=== PATIENT | male | born 1960 | race Caucasian/White ===

== ENCOUNTER 2020-10-16 08:09 | Emergency (ER) | payer OTHER ==
--- NOTE | 2020-10-16 09:03 | ERPHSYRPT ---
- History of Present Illness Source: patient Exam Limitations: no limitations Patient Subjective Stated Complaint: R knee pain Triage Nursing Assessment: pt to ED c/o R knee pain since hurting back Friday at work. rates 8/10 pain. ambulatory with walker since injury, but reports back does not hurt any longer. "the more I stand on it the longer it hurts." Physician History: 60 yo WM w non-traumatic R knee pain starting on 10/13/20. Pt states that his lower back started to hurt on 10/13/20 but has since resolved. His R knee started to hurt after his lumbar pain resolved. He does not have any radicular pain/calf,thigh, or hip pain/edema. Pain is 6/10, worse w standing, and described as "burning". Pt has a h/o gout in his R great toe in the past. Method of Injury: unknown Occurred: other (10/13/20) Quality: constant, burning Severity of Pain-Max: severe Severity of Pain-Current: moderate Lower Extremities Pain: knee: right Modifying Factors: Improves With: movement Associated Symptoms: other (Pain worse w weight bearing) Allergies/Adverse Reactions: No Known Drug Allergies Allergy (Unverified 10/16/20 08:46) Hx Tetanus, Diphtheria Vaccination/Date Given: No Hx Influenza Vaccination/Date Given: No Hx Pneumococcal Vaccination/Date Given: No Immunizations Up to Date: No Travel Risk - International Travel Have you traveled outside of the country in past 3 weeks: No - Coronavirus Screening Are you exhibiting any of the following symptoms?: No Close contact with a COVID-19 positive Pt in past 14-21 Days: No - Vaccine Status Have you recieved a Covid-19 vaccination: No - Review of Systems Constitutional: No Symptoms Eyes: No Symptoms Ears, Nose, & Throat: No Symptoms Respiratory: No Symptoms Cardiac: No Symptoms Abdominal/Gastrointestinal: No Symptoms Genitourinary Symptoms: No Symptoms Skin: No Symptoms Neurological: No Symptoms Psychological: No Symptoms Endocrine: No Symptoms Hematologic/Lymphatic: No Symptoms Immunological/Allergic: No Symptoms - Past Medical History Pertinent Past Medical History: Yes Other Medical History: gout - Past Surgical History Past Surgical History: Yes Musculoskeletal: Orthopedic Surgery Other Surgical History: L thumb - Social History Smoking Status: Never smoker Exposure to second hand smoke: No Drug Use: none Patient Lives Alone: No Significant Family History: no pertinent family hx - Nursing Vital Signs Nursing Vital Signs: Initial Vital Signs Temperature 97.4 F 10/16/20 08:39 Pulse Rate 62 10/16/20 08:39 Respiratory Rate 18 10/16/20 08:39 Blood Pressure 169/87 10/16/20 08:39 O2 Sat by Pulse Oximetry 98 10/16/20 08:39 Pain Scale Pain Intensity 4 Hypertensive - Physical Exam General Appearance: no apparent distress Eyes, Ears, Nose, Throat Exam: normal ENT inspection, TMs normal, pharynx normal, moist mucous membranes Neck Exam: normal inspection, non-tender, supple, full range of motion, No Brudzinski, No Kernig's, No meningismus, No carotid bruit Cardiovascular/Respiratory Exam: chest non-tender, normal breath sounds, regular rate/rhythm, heart sounds normal, rhonchi Gastrointestinal/Abdominal Exam: soft, no organomegaly Back Exam: normal inspection, normal range of motion, No CVA tenderness, No vertebral tenderness Hips Exam: bilateral: non-tender, normal inspection, normal range of motion, no evidence of injury Legs Exam: bilateral leg: non-tender, normal inspection, normal range of motion, no evidence of injury Knees Exam: right knee: bone tenderness (Mild diffuse R knee TTP/No instability/Good pedal pulse, distal sensation, and capillary return) Neuro/Tendon Exam: normal sensation, normal motor functions, normal tendon functions, responds to pain, no evidence tendon injury Mental Status Exam: alert, oriented x 3, cooperative Skin Exam: normal color, warm, dry, No rash SpO2 Interpretation: normal SpO2: 98 O2 Delivery: Room Air - Radiology Exams Knee X-ray Interpretation: Discussed w/ radiologist (R knee neg for acute pathology/Fabella) Ordered Tests: Active Orders 24 hr Category Date Time Status Dennis Bandage Application [facility] STAT Care 10/16/20 10:03 Completed KNEE (3 VIEWS) Stat Exams 10/16/20 09:22 Completed ESR [Erythrocyte Sedimentation Rate] Stat Lab 10/16/20 09:03 Completed Uric Acid Stat Lab 10/16/20 09:03 Completed Medication Summary Discontinued Medications Generic Name Dose Route Start Last Admin Trade Name Freq PRN Reason Stop Dose Admin Ketorolac Tromethamine 30 mg 10/16/20 10:00 10/16/20 10:12 Toradol 30 Mg Injection IM 10/16/20 10:01 30 mg STAT ONE Administration Ketorolac Tromethamine Confirm 10/16/20 10:11 Toradol 30 Mg Injection Administered 10/16/20 10:12 Dose 30 mg .ROUTE .STK-MED ONE Methylprednisolone Sodium Succinate 125 mg 10/16/20 10:03 10/16/20 10:13 Solu-Medrol W/Diluent 500 Mg IM 10/16/20 10:04 125 mg STAT ONE Administration Methylprednisolone Sodium Succinate Confirm 10/16/20 10:11 Solu-Medrol Administered 10/16/20 10:12 Dose 125 mg .ROUTE .STK-MED ONE Sterile Water Confirm 10/16/20 10:11 Sterile H2o 10 Ml Administered 10/16/20 10:12 Dose 10 ml IJ .STK-MED ONE Lab/Rad Data: Laboratory Results 10/16/20 10/16/20 Range/Units 09:03 09:03 ESR 9 (0-15) mm/hr Uric Acid 4.7 (3.5-7.2) mg/dL - Progress Progress: improved Progress Note: 10/16/20 10:05 30mg IM Toradol/125mg IM Solumedrol Dennis wrap R knee per nursing/NVI Counseled pt/family regarding: lab results, need for follow-up, rad results - Departure Departure Disposition: Home Clinical Impression: Knee pain Condition: Stable Critical Care Time: No Referrals: CARRINGTON KELLER, DO [Primary Care Provider] - Instructions: Knee Pain (DC) Additional Instructions: Dennis wrap for 2-3 days Weight bearing as tolerated Toradol as needed for pain Follow up with your family MD for continued pain Prescriptions: Ketorolac Tromethamine [Toradol] 10 mg PO TID PRN #10 tablet PRN Reason: Pain
--- NOTE | 2020-10-16 09:49 | XRAY ---
Indication: Pain following fall. Comparison: None 3 view right knee demonstrates small posterior fabella. No other bony, articular, or soft tissue abnormalities.
[2020-10-16] MEDS ORDERED: TORAdol 30 mg Injection IM ONE (10:00)
[2020-10-16] MEDS ORDERED: solu-MEDROL W/DILUENT 500 MG IM ONE (10:03)
[2020-10-16] MEDS ORDERED: TORAdol 30 mg Injection ONE (10:11)
[2020-10-16] MEDS ORDERED: solu-MEDROL ONE (10:11)
[2020-10-16] MEDS ORDERED: Sterile H2O 10 ml IJ ONE (10:11)
[2020-10-16 11:01] VITALS: BP 142/81; PULSE 58
[2020-10-16 20:03] VITALS: O2SAT 98
== END 2020-10-16 11:02 | disposition home or self-care (01) ==
LOC: ED 08:09
DX: M25.561 Pain in right knee (principal)
CPT/HCPCS: 36415; 73562; 84550; 85652; 96372; 99284; J1885; J2930

== ENCOUNTER 2023-10-20 14:12 | Emergency (ER) | payer OTHER ==
[2023-10-20 14:24] VITALS: TEMP 97.1; O2SAT 98
[2023-10-20 14:42] LABS: Absolute Neutrophil Ct (ANC) 5.57 x10^3/uL (1.78-5.38); BASOPHIL % 0.5 % (0.2-1.2); Basophil (Absolute #) 0.04 x10^3/uL (0.01-0.08); Eosinophil % 0.8 % (0.8-7.0); Eosinophil (Absolute #) 0.06 x10^3/uL (0.04-0.54); Hematocrit 43.2 % (40.1-51.0); Hemoglobin 14.4 g/dL (13.7-17.5); IMMATURE GRAN # 0.02 x10^3u/L (0.001-0.031); IMMATURE GRAN % 0.3 % (0.001-0.429); Lymphocyte (Absolute #) 1.57 x10^3/uL (1.32-3.57); Lymphocytes % 20.2 % (21.8-53.1); Mean Cell Volume 91.7 fL (79.0-92.2); Mean Corpuscular Hemoglobin 30.6 pg (25.7-32.2); Mean Corpuscular Hgb Concent. 33.3 g/dL (32.3-36.5); Mean Platelet Volume 10.2 fL (9.4-12.4); Monocyte (Absolute #) 0.52 x10^3/uL (0.30-0.82); Monocytes % 6.7 % (5.3-12.2); Neutrophil % 71.5 % (34.0-67.9); Platelet Count 181 x10^3/uL (163-337); Red Blood Count 4.71 x10^6/uL (4.63-6.08); Red Cell Distribution Width 12.3 % (11.6-14.4); White Blood Count 7.8 x10^3/uL (4.23-9.07)
[2023-10-20] MEDS: Transderm Scop 1.5MG Patch TOP ONE (14:56)
[2023-10-20 15:00] LABS: ALBUMIN 4.4 g/dL (3.5-5.0); ANION GAP 16.7 MEQ/L (5-15); Calcium 9.5 mg/dL (8.4-10.2); Creatinine 1 1.11 mg/dL (0.66-1.25); EST GLOMERULAR FILTRATION RATE 74.2 ML/MIN; MAGNESIUM 2.3 mg/dL (1.6-2.3); Potassium 3.8 mmol/L (3.5-5.1); Total Protein 7.1 g/dL (6.3-8.2)
--- NOTE | 2023-10-20 15:56 | ERPHSYRPT ---
- History of Present Illness Time Seen by Provider: 10/20/23 14:18 Source: patient Exam Limitations: no limitations Patient Subjective Stated Complaint: syncopal episode at home at approximately 1310 Triage Nursing Assessment: Pt arrives to ER via ambulance with cc of syncopal episode x1 prior to arrival. States hiked 4 miles today. Approximately 1 hour after the hike, bent over, came back upright and got lightheaded. Sat down, had syncopal episode. called EMS. per EMS, initial BP on scene 60's/30's. Enroute, improved to 90's/50's. Upon arrival to ER, BP stable. Pt A &OX3, denies LAWTON, nausea, dizziness. Skin PWD. FSBS and vitals all WNL. Pt states he feels his normal self. EKG shows NSR. Pt is A &OX3, answers all questions appropriately. Physician History: 63-year-old fairly healthy male presented in the ER with complains of syncopal episode prior to arrival. Patient reportS almost 4 miles hiking earlier today, was sitting outside, got up, felt dizzy and lightheaded which improved with sitting again and later on he bent down with worsening of lightheadedness on standing and passed out for few seconds. It was witnessed, did not hit his head. No seizure-like activity noticed. He was not postictal. Although patient was feeling weak fatigued tired all over. Initial blood pressure on EMS arrival was in 60s which improved quickly to 90s and on presentation in the ER is 144 systolic. Denies any chest pain palpitations or shortness of breath before or after this episode. Patient denies any focal numbness tingling weakness, difficulty speech or visual disturbance. Denies any headache. Ashly ent is currently asymptomatic. Patient thinks he got hot because he was in front of the fire for a little while before this happened. Allergies/Adverse Reactions: No Known Drug Allergies Allergy (Unverified 10/16/20 08:46) Hx Tetanus, Diphtheria Vaccination/Date Given: No Hx Influenza Vaccination/Date Given: No Hx Pneumococcal Vaccination/Date Given: No Travel Risk - International Travel Have you traveled outside of the country in past 3 weeks: No - Review of Systems Constitutional: Fatigue Eyes: No Symptoms Ears, Nose, & Throat: No Symptoms Respiratory: No Symptoms Cardiac: No Symptoms Abdominal/Gastrointestinal: No Symptoms Genitourinary Symptoms: No Symptoms Musculoskeletal: No Symptoms Skin: No Symptoms Neurological: No Symptoms Endocrine: No Symptoms Hematologic/Lymphatic: No Symptoms Immunological/Allergic: No Symptoms - Past Medical History Pertinent Past Medical History: Yes Other Medical History: gout - Past Surgical History Past Surgical History: Yes Musculoskeletal: Orthopedic Surgery Other Surgical History: L thumb Significant Family History: no pertinent family hx - Social History Smoking Status: Never smoker Exposure to second hand smoke: No Drug Use: none Patient Lives Alone: No - Nursing Vital Signs Nursing Vital Signs: Initial Vital Signs Temperature 97.1 F 10/20/23 14:13 Pulse Rate 62 10/20/23 14:13 Respiratory Rate 16 10/20/23 14:13 Blood Pressure 113/66 10/20/23 14:13 O2 Sat by Pulse Oximetry 98 10/20/23 14:13 Pain Scale Pain Intensity 0 - Physical Exam General Appearance: no apparent distress, alert Eye Exam: PERRL/EOMI Ears, Nose, Throat Exam: normal ENT inspection Neck Exam: normal inspection, non-tender, supple, full range of motion Respiratory Exam: normal breath sounds, lungs clear Cardiovascular Exam: regular rate/rhythm, normal heart sounds Gastrointestinal/Abdomen Exam: soft, normal bowel sounds, No tenderness Back Exam: normal inspection, normal range of motion Extremity Exam: normal inspection, normal range of motion Neurologic Exam: alert, oriented x 3, cooperative, job coach/job developer II-XII nml as tested, normal mood/affect, nml cerebellar function, nml station & gait, sensation nml, motor deficits Skin Exam: normal color SpO2 Interpretation: normal SpO2: 98 O2 Delivery: Room Air - Course EKG Interpreted by Me: RATE (62), Sinus Rhythm, NORMAL AXIS, NORMAL INTERVALS, NORMAL QRS Ordered Tests: Active Orders 24 hr Category Date Time Status Underwear Finisher STAT Care 10/20/23 14:25 Active EKG-ER Only STAT Care 10/20/23 14:24 Active IV Insertion STAT Care 10/20/23 14:24 Active Orthostatic Vital Signs STAT Care 10/20/23 14:24 Active CHEST 1 VIEW (PORTABLE) Stat Exams 10/20/23 14:24 Taken CBC W DIFF Stat Lab 10/20/23 14:38 Completed CK-Creatinine Phosphokinase Stat Lab 10/20/23 14:38 Completed CMP Stat Lab 10/20/23 14:38 Completed Lactic Acid Stat Lab 10/20/23 14:51 Completed MAGNESIUM Stat Lab 10/20/23 14:38 Completed POCT GLUCOSE Stat Lab 10/20/23 14:19 Completed TROPONIN Q4H Lab 10/20/23 14:38 Completed TROPONIN Q4H Lab 10/20/23 18:30 Ordered TROPONIN Q4H Lab 10/20/23 22:30 Ordered UA W/RFX UR CULTURE Stat Lab 10/20/23 15:49 Ordered Medication Summary Discontinued Medications Generic Name Dose Route Start Last Admin Trade Name Freq PRN Reason Stop Dose Admin Sodium Chloride 1,000 mls @ 999 mls/hr 10/20/23 14:24 Sodium Chloride 0.9% 1000 Ml IV 10/20/23 15:24 .Q1H1M STA Scopolamine HBr 1.5 mg 10/20/23 14:24 10/20/23 14:56 Scopolamine 1.5 Mg Patch TOP 10/20/23 14:25 Not Given STAT ONE Lab/Rad Data: Laboratory Result Diagrams 10/20/23 14:38 10/20/23 14:38 Laboratory Results 10/20/23 10/20/23 10/20/23 Range/Units 14:51 14:38 14:38 WBC (4.23-9.07) x10^3/uL RBC (4.63-6.08) x10^6/uL Hgb (13.7-17.5) g/dL Hct (40.1-51.0) % MCV (79.0-92.2) fL MCH (25.7-32.2) pg MCHC (32.3-36.5) g/dL RDW (11.6-14.4) % Plt Count (163-337) x10^3/uL MPV (9.4-12.4) fL Gran % (34.0-67.9) % Immature Gran % (Auto) (0.001-0.429) % Nucleat RBC Rel Count (0.00-0.2) % Eos # (Auto) (0.04-0.54) x10^3/uL Immature Gran # (Auto) (0.001-0.031) x10^3u/L Absolute Lymphs (auto) (1.32-3.57) x10^3/uL Absolute Monos (auto) (0.30-0.82) x10^3/uL Absolute Nucleated RBC (0.00-0.012) x10^3u/L Lymphocytes % (21.8-53.1) % Monocytes % (5.3-12.2) % Eosinophils % (0.8-7.0) % Basophils % (0.2-1.2) % Absolute Granulocytes (1.78-5.38) x10^3/uL Basophils # (0.01-0.08) x10^3/uL Sodium 137 (135-145) mmol/L Potassium 3.8 (3.5-5.1) mmol/L Chloride 100 (98-107) mmol/L Carbon Dioxide 24 (22-30) mmol/L Anion Gap 16.7 H (5-15) MEQ/L BUN 16 (9-20) mg/dL Creatinine 1.11 (0.66-1.25) mg/dL Estimated GFR 74.2 ML/MIN Glucose 109 H (74-106) mg/dL POC Glucometer (74 to 106) mg/dL Lactic Acid 1.9 (0.4-2.0) Calcium 9.5 (8.4-10.2) mg/dL Magnesium 2.3 (1.6-2.3) mg/dL Total Bilirubin 1.00 (0.2-1.3) mg/dL AST 26 (17-59) U/L ALT 21 (0-50) U/L Alkaline Phosphatase 79 (38-126) U/L Creatine Kinase 69 (55-170) U/L Troponin I < 0.012 (0.000-0.033) ng/mL Serum Total Protein 7.1 (6.3-8.2) g/dL Albumin 4.4 (3.5-5.0) g/dL 10/20/23 10/20/23 Range/Units 14:38 14:19 WBC 7.8 (4.23-9.07) x10^3/uL RBC 4.71 (4.63-6.08) x10^6/uL Hgb 14.4 (13.7-17.5) g/dL Hct 43.2 (40.1-51.0) % MCV 91.7 (79.0-92.2) fL MCH 30.6 (25.7-32.2) pg MCHC 33.3 (32.3-36.5) g/dL RDW 12.3 (11.6-14.4) % Plt Count 181 (163-337) x10^3/uL MPV 10.2 (9.4-12.4) fL Gran % 71.5 H (34.0-67.9) % Immature Gran % (Auto) 0.3 (0.001-0.429) % Nucleat RBC Rel Count 0.0 (0.00-0.2) % Eos # (Auto) 0.06 (0.04-0.54) x10^3/uL Immature Gran # (Auto) 0.02 (0.001-0.031) x10^3u/L Absolute Lymphs (auto) 1.57 (1.32-3.57) x10^3/uL Absolute Monos (auto) 0.52 (0.30-0.82) x10^3/uL Absolute Nucleated RBC 0.00 (0.00-0.012) x10^3u/L Lymphocytes % 20.2 L (21.8-53.1) % Monocytes % 6.7 (5.3-12.2) % Eosinophils % 0.8 (0.8-7.0) % Basophils % 0.5 (0.2-1.2) % Absolute Granulocytes 5.57 H (1.78-5.38) x10^3/uL Basophils # 0.04 (0.01-0.08) x10^3/uL Sodium (135-145) mmol/L Potassium (3.5-5.1) mmol/L Chloride (98-107) mmol/L Carbon Dioxide (22-30) mmol/L Anion Gap (5-15) MEQ/L BUN (9-20) mg/dL Creatinine (0.66-1.25) mg/dL Estimated GFR ML/MIN Glucose (74-106) mg/dL POC Glucometer 90 (74 to 106) mg/dL Lactic Acid (0.4-2.0) Calcium (8.4-10.2) mg/dL Magnesium (1.6-2.3) mg/dL Total Bilirubin (0.2-1.3) mg/dL AST (17-59) U/L ALT (0-50) U/L Alkaline Phosphatase (38-126) U/L Creatine Kinase (55-170) U/L Troponin I (0.000-0.033) ng/mL Serum Total Protein (6.3-8.2) g/dL Albumin (3.5-5.0) g/dL - Progress Progress: improved Progress Note: 10/20/23 15:54 61 years old is evaluated in the ER for syncopal episode prior to arrival. Patient was hiking earlier and prior to this episode he was in front of the fire when he got dizzy lightheaded with standing. Patient had no seizure-like activity. Nonfocal neuroexam on presentation. Patient was hypotensive, blood pressure in 60s on EMS arrival but improved to 140s on presentation in the ER. EKG is sinus rhythm with no acute ischemic changes. Negative troponins. Normal white count, fairly unremarkable chemistries except for mildly elevated gap which probably is secondary to some dehydration. Chest x-ray negative for any acute cardiopulmonary findings reviewed by me, official report is pending. Patient has negative orthostatics. Recommended IV fluids which she declined. Patient does not want to have anything else done including CT head. I believe patient's symptoms are more of a vasovagal/orthostatic syncope, it was not vertiginous, recommended increase hydration and outpatient follow-up. Discussed signs symptoms of worsening needing return to ER which she seems understanding. Stable for discharge. Counseled pt/family regarding: lab results, diagnosis, need for follow-up, rad results Medical Desision Making - Independent Historian Additional History obtained from: Spouse, Weighmaster/EMT - Diagnostic Testing Diagnostic test were ordered, analyzed, and reviewed by me: Yes Radiological Interpretation: Interpreted by me, Reviewed by me - Departure Departure Disposition: Home Clinical Impression: Syncope and collapse Condition: Stable Critical Care Time: No Referrals: Jackie KELLER [Primary Care Provider] - Follow up with PCP 1 day MELISSA WALKER [CONSULTING PHYSICIAN] - Follow up/PCP as directed (Call for appointment) Instructions: Syncope (Fainting) (DC) Additional Instructions: Drink plenty of fluids to keep yourself well-hydrated. Follow-up with primary care/cardiology for reevaluation. Return to ER if having dizziness lightheadedness, chest pain palpitations or shortness of breath etc.
[2023-10-20 16:13] VITALS: BP 122/65; PULSE 64; RESP 10
[2023-10-20 16:26] LABS: Appearance Clear (Clear); Bacteria None Seen /HPF (None Seen); Bilirubin Negative (Negative); Blood Negative (Negative); Epithelial Cells None Seen /HPF (None Seen); Glucose, Urine Negative (Negative); Ketones >=160 (Negative); Leukocyte Esterase Negative (Negative); Nitrite Negative (Negative); Ph 5.5 (4.6-8.0); Protein,Urine Dip 30 (Negative); RBC 0-2 /HPF (0-5); Specific Gravity 1.025 (1.005-1.030)
[2023-10-20] MEDS: Sodium Chloride 0.9% 1000 ML 1,000 ML IV STA (16:30)
[2023-10-20 16:33] LABS: ADD URINE CULTURE? YES (NO)
--- NOTE | 2023-10-20 19:31 | XRAY ---
Indication: Dizziness. Syncope. Comparison: None Portable chest demonstrates normal heart and lungs with incidental small left lung calcified granuloma. Bony thorax intact with osteopenia and mild degenerative changes. Impression: Nonacute chest with chronic features.
== END 2023-10-20 16:30 | disposition home or self-care (01) ==
LOC: ED 14:12
DX: R55 Syncope and collapse (principal)
CPT/HCPCS: 36415; 71045; 80053; 81001; 82550; 82947; 83605; 83735; 84484; 85025; 87086; 93005; 93041; 99284